=== PATIENT | male | born 1985 | race Caucasian/White ===

== ENCOUNTER 2016-09-28 08:50 | Emergency (ER) | payer BC ==
[~2016-09-28] VITALS: Ht 170.2 cm; Wt 69.5 kg
[~2016-09-28 08:50] MED LIST: ATHENOL325 MG PO; CEFDINIR300 MG PO; NAPROSYN500 MG PO; NOHOMEMEDS; PREDNISONE20 MG PO; TESSALON PERLE100 MG PO; ZITHROMAX250 MG PO
[2016-09-28] MEDS ORDERED: NAPROSYN500 MG PO (10:22)
[2016-09-28] MEDS ORDERED: ZOFRAN ODT4 MG PO (10:22)
[2016-09-28 10:40] VITALS: BP 120/72
== END 2016-09-28 10:42 | disposition home or self-care (01) ==
LOC: EME 08:50
DX: S09.90XA Unspecified injury of head, initial encounter (principal); S63.501A Unspecified sprain of right wrist, initial encounter; W10.8XXA Fall (on) (from) other stairs and steps, initial encounter; F17.200 Nicotine dependence, unspecified, uncomplicated
CPT/HCPCS: 70450; 73110; 99281; 99284